=== PATIENT | female | born 1950 | race Caucasian/White ===

== ENCOUNTER 2017-08-02 06:57 | Day surgery (SDC) | payer BC ==
[~2017-08-02] VITALS: Ht 167.6 cm; Wt 81.8 kg
[~2017-08-02 06:57] MED LIST: ADVAIR 100/501 DISK IH; ALEVE220 M2 PO; ALLEGRA ALLERGY60 MG PO; ASTHMA CHECK1 EACH MC; CRESTOR5 MG PO; PROAIR HFA8.5 GM IH; PROVENTIL,2.5 MG/0.5 IH; PROZAC10 MG PO; TOPROL XL50 MG PO; VITAMIN D31000 UNIT PO
[2017-08-02 07:40] VITALS: BP 141/81
[2017-08-02 11:27] VITALS: BP 126/62
== END 2017-08-02 11:35 | disposition home or self-care (01) ==
LOC: SDC 06:57
DX: H43.12 Vitreous hemorrhage, left eye (principal); H33.312 Horseshoe tear of retina without detachment, left eye; J45.909 Unspecified asthma, uncomplicated; E78.5 Hyperlipidemia, unspecified; I10 Essential (primary) hypertension; Z87.891 Personal history of nicotine dependence; Z88.0 Allergy status to penicillin
CPT/HCPCS: J0690; J0713; J2250; J3300